=== PATIENT | female | born 1985 | race American Indian/Alaskan Native ===

== ENCOUNTER → 2018-02-01 | Emergency (ER) | payer OTHER ==
--- NOTE | 2018-02-02 11:05 | OBHP ---
Datetime: 02/01/2018 07:20 IP Adm Impression: Term, intrauterine IP Admit Plan: Observation/Evaluation Admit Comment, IP Provider: 32 y/o , 39.2 wks based on LMP of 05/02/18 and ADWOA of 02/06/18 pre sents to [facility] with contractions and vaginal bleeding. Contractions started 4 am this morning Q2-3 min s, regular with lower abdominal pressure. Vaginal bleeding is scent bright red which started this mor kavya which she noticed while wiping. Endorses good movements. Amy LOF. PNC: Dr. 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 PSHx: Denies Allergies: Peanut F/H: DM father and GM S/S: Denies alcohol/drugs/tobacco since Meds: PNVs, avyclovir/valacyclovir PE General: NAD Chest: RRR, S1S2 present Lungs: CTA B/L Abdomen: Gravid, NT SVE: Ext : No pedal edema or calf tenderness A/P: 32 y/o , 39.2 wks based on LMP of 05/02/18 and ADWOA of 02/06/18 presents to [facility] with co ntractions and vaginal bleeding. - EFM and toco - NST reactive - - Monitor for cervical change Case discussed with attending Mika Argueta, PGY1 OB Hospitalist Addendum: Pt seen and examined by me. Agree w/ above. 32 yo at 39+2 wks w / contractions, vag spotting. VE at 0720. Discussed w/ Dr. Ward who will come by and see the pt. (ES) Pelvic Type - PN: Not Done Extremities - PN: Normal Abdomen - PN: Normal Back - PN: Normal Breast - PN: Normal Lungs - PN: Normal Heart - PN: Normal Thyroid - PN: Not Done Neurologic - PN: Normal HEENT - PN: Normal General - PN: Normal FHR - Baseline A Provider: 140 Contraction Comments Provider: regular Comments, ACOG Physical Exam: General: NAD Chest: RRR, S1S2 present Lungs: CTA B/L Abdomen: Gravid, NT SVE: 06/08/-3 Ext : No pedal edema or calf tenderness (Annotations: Data stored by CPN on behalf of user) IP Hx Assessment: The History has been Reviewed and is Current EGA AdmitDate IP: 39.2 Vital Signs Provider: Reviewed; Within Normal Limits IP Chief Complaint: Uterine contractions; Vaginal bleeding NICHD Variability Prov Fetus A: Moderate 6-25bpm NICHD Accel Fetus A IP Provider: 15X15 FHR Category Provider Fetus A: Category I NICHD Decel Fetus A IP Provider: None Dilatation, Provider: 1 Effacement, Provider: 30 Station, Provider: -3 Genitourinary Exam: Normal DTRs - PN: Not Done
== END | disposition home or self-care (01) ==
LOC: H.EROB2 05:00
DX: O26.93 Pregnancy related conditions, unspecified, third trimester (principal); R10.2 Pelvic and perineal pain; O26.853 Spotting complicating pregnancy, third trimester; Z3A.39 39 weeks gestation of pregnancy

== ENCOUNTER 2018-02-02 06:23 | Inpatient (IN) | payer OTHER ==
[2018-02-02 08:31] VITALS: BMI 28.1
[2018-02-02] MEDS ORDERED: Lactated Ringer's 1,000 ML IV ONE (08:31)
[2018-02-02] MEDS: Lactated Ringer's 1,000 ML IV SCH ×2 (09:00→14:08)
[2018-02-02] MEDS ORDERED: Oxytocin 30 UNIT 30 UNITS/500 ML BAG IV ONE ×2 (09:08→17:20)
[2018-02-02] MEDS ORDERED: OXYTOCIN/0.9 % NS 20 UNIT/1,000 ML BAG IV SCH (09:15)
[2018-02-02] MEDS ORDERED: Fentanyl/Bupivacaine HCl 250 ML EPI ONE (09:20)
[2018-02-02 09:33] LABS: BASO % 0.2 % (0.0-2.0); EOS # 0.1 K/uL (0.0-0.7); EOS % 0.6 % (0.0-4.0); HEMOGLOBIN 13.2 g/dL (12.0-16.0); LYMPH # 0.9 K/uL (1.0-4.3); LYMPH % 8.2 % (20.0-40.0); MEAN CORPUSCULAR HEMOGLOBIN 35.4 pg (27.0-31.0); MEAN PLATELET VOLUME 8.9 fl (7.2-11.7); MONO # 0.4 K/uL (0.0-0.8); MONO % 3.8 % (0.0-10.0); NEUT # 9.4 K/uL (1.8-7.0); NEUT % 87.2 % (50.0-75.0); NRBC % 0.1 % (0.0-0.0); PLATELET COUNT 190 K/uL (130-400); RBC 3.74 Mil/uL (3.80-5.20); WHITE BLOOD COUNT 10.8 K/uL (4.8-10.8)
[2018-02-02 10:33] LABS: BANDS 2 % (0-2); LYMPHOCYTE 7 % (20-50); MONOCYTE 3 % (0-10); NEUTROPHIL 88 % (42-75); TOTAL CELLS COUNTED 100
[2018-02-02 10:34] LABS: PLATELET ESTIMATE NORMAL (NORMAL)
[2018-02-02] MEDS ORDERED: Penicillin G Potassium 2 MU in Sodium Chloride 0.9% 50 ML IVPB SCH (13:00)
[2018-02-02] MEDS ORDERED: Penicillin G 5 Million Unit Vial IVPB ONE (14:37)
--- NOTE | 2018-02-02 22:41 | OBADHP ---
Datetime: 02/02/2018 22:35 Admit Comment, IP Provider: iup at term uneventful course admitted in labor for delivery Pelvic Type - PN: Adequate Extremities - PN: Normal Abdomen - PN: Normal Back - PN: Normal Breast - PN: Normal Lungs - PN: Normal Heart - PN: Normal Thyroid - PN: Normal Neurologic - PN: Normal HEENT - PN: Normal General - PN: Normal Presentation-Admit: Vertex FHR - Baseline A Provider: 130 Membranes, Provider: Bulging Contraction Comments Provider: irregular Gestation - Est Wks by US: 39+ IP Chief Complaint: Uterine contractions NICHD Variability Prov Fetus A: Moderate 6-25bpm NICHD Accel Fetus A IP Provider: 10X10 FHR Category Provider Fetus A: Category I NICHD Decel Fetus A IP Provider: None Dilatation, Provider: 7 Effacement, Provider: 75% Station, Provider: -3 Genitourinary Exam: Normal DTRs - PN: Normal EGA AdmitDate IP: 39.3 IP Adm Impression: Term, intrauterine IP Admit Plan: Admit to unit; Initiate labor protocol
--- NOTE | 2018-02-02 22:44 | OBDS ---
DELIVERY PERSONNEL Delivery Doctor: Angelika Mcdonough MD Anesthesiologist: Eugenia Person MD MATERNAL INFORMATION Delivery Anesthesia: Epidural Medications in Delivery: pitocin Estimated Blood Loss (ml): 250 Maternal Complications: None Provider Comments: delivery of live baby boy 7/9 meconiunnm fluid cord with 3vessels placenta intact perineum with small scratch LABOR SUMMARY EDC: 02/06/2018 00:00 No. Babies in Womb: 1 Attempted: No Labor Anesthesia: Intrathecal LABOR INFORMATION Reason for Induction: Not Applicable Onset of Labor: 02/01/2018 08:25 Oxytocin: N/A Group B Beta Strep: Positive Antibiotics # of Doses: PEN G x1 Antibiotics Time of Last Dose: 1100 02/02 Steroids Given: None Reason Steroids Not Administered: Not Applicable MEMBRANES Membranes Rupture Method: Artificial Rupture of Membranes: 02/02/2018 11:20 Amniotic Fluid Color: Light Meconium Amniotic Fluid Amount: Moderate Amniotic Fluid Odor: None VAGINAL DELIVERY Episiotomy: None Laceration Extension: N/A Laceration Type: None BABY A INFORMATION Method of Delivery: Vaginal Born in Route : No : N/A PRESENTATION/POSITION BABY A Cephalic Presentation: Vertex INFANT INFORMATION BABY A Gestational Age at Delivery: 39.3 (Annotations: Data stored by [facility] on behalf of user) Gestational Status: Term IDENTIFICATION/MEDS BABY A ID Band Number: [id number] ID Band Location: Left Leg; Left Arm
[2018-02-02] MEDS ORDERED: Benzocaine/Menthol SPRAY TOP PRN (22:56)
[2018-02-02] MEDS ORDERED: Oxycodone/Acetaminophen 5/325 mg Tab PO PRN ×2 (22:56)
[2018-02-02] MEDS ORDERED: OXYTOCIN/0.9 % NS 20 UNIT/1,000 ML BAG IV ONE (22:56)
[2018-02-02] MEDS ORDERED: Acetaminophen-Codeine 300/30 mg Tab PO PRN (22:56)
[2018-02-03] MEDS ORDERED: Acetaminophen-Codeine 300/30 mg Tab PO PRN (01:54)
[2018-02-03] MEDS ORDERED: Oxycodone/Acetaminophen 5/325 mg Tab PO PRN ×2 (01:54)
[2018-02-03] MEDS ORDERED: Benzocaine/Menthol SPRAY TOP PRN (01:54)
[2018-02-03] MEDS ORDERED: Multivitamin With Minerals Tab PO SCH ×2 (09:00)
--- NOTE | 2018-02-03 10:36 | OBHP ---
Datetime: 02/02/2018 22:35 IP Adm Impression: Term, intrauterine IP Admit Plan: Admit to unit; Initiate labor protocol Admit Comment, IP Provider: iup at term uneventful course admitted in labor for delivery Pelvic Type - PN: Adequate Extremities - PN: Normal Abdomen - PN: Normal Back - PN: Normal Breast - PN: Normal Lungs - PN: Normal Heart - PN: Normal Thyroid - PN: Normal Neurologic - PN: Normal HEENT - PN: Normal General - PN: Normal Presentation-Admit: Vertex FHR - Baseline A Provider: 130 Membranes, Provider: Bulging Contraction Comments Provider: irregular Gestation - Est Wks by US: 39+ IP Indication for Induction: Not Applicable IP Chief Complaint: Uterine contractions NICHD Variability Prov Fetus A: Moderate 6-25bpm NICHD Accel Fetus A IP Provider: 10X10 FHR Category Provider Fetus A: Category I NICHD Decel Fetus A IP Provider: None Dilatation, Provider: 7 Effacement, Provider: 75% Station, Provider: -3 Genitourinary Exam: Normal DTRs - PN: Normal Datetime: 02/01/2018 07:20 Comments, ACOG Physical Exam: General: NAD Chest: RRR, S1S2 present Lungs: CTA B/L Abdomen: Gravid, NT SVE: 3 Ext : No pedal edema or calf tenderness (Annotations: Data stored by CPN on behalf of user) IP Hx Assessment: The History has been Reviewed and is Current EGA AdmitDate IP: 39.2 Vital Signs Provider: Reviewed; Within Normal Limits
[2018-02-03 12:47] LABS: BASO % 0.3 % (0.0-2.0); EOS # 0.3 K/uL (0.0-0.7); EOS % 1.9 % (0.0-4.0); HEMOGLOBIN 11.4 g/dL (12.0-16.0); LYMPH # 1.7 K/uL (1.0-4.3); LYMPH % 11.2 % (20.0-40.0); MEAN CORPUSCULAR HGB CONC 33.9 g/dL (33.0-37.0); MEAN PLATELET VOLUME 8.6 fl (7.2-11.7); MONO # 1.2 K/uL (0.0-0.8); MONO % 7.8 % (0.0-10.0); NEUT # 11.8 K/uL (1.8-7.0); NEUT % 78.8 % (50.0-75.0); NRBC % 0.1 % (0.0-0.0); RBC 3.26 Mil/uL (3.80-5.20); WHITE BLOOD COUNT 14.9 K/uL (4.8-10.8)
[2018-02-04] MEDS ORDERED: Influenza Vaccine (5 YR UP)/PF 60 MCG/0.5 ML SYR IM ONE (14:00)
--- NOTE | 2018-02-04 15:16 | OBPPN ---
Datetime: 02/04/2018 15:12 PP Pain Prov: Within normal limits PP Nausea Prov: Denies PP Flatus Prov: Yes PP Breasts Prov: Normal PP Heart Prov: Normal PP Lungs Prov: Normal PP Abdomen/Uterus Prov: Normal PP Lochia Prov: Normal PP Vulva/Perineum Prov: Normal PP CVA Tenderness Prov: Normal PP Extremities Prov: Normal PP Progress Prov: Normal PP Impression Prov: Normal progression PP Plan Prov: Continue present management PP Progress Note Prov: stable ppd2 dc home today IP PP Procedures: None Vital Signs Provider PP: Reviewed; Within Normal Limits
--- NOTE | 2018-02-04 15:19 | OBDCSUM ---
Datetime: 02/04/2018 15:15 Discharged to, Provider: Home Follow up at, Provider: Disch Instr Activity: Normal activity; Bedrest; May be up to bathroom; May be up for meals; May Show er Disch Instr Diet: Regular Discharge Instructions, Provider: Routine instructions given Discharge Diagnosis, Provider: Term Delivered Discharge Time: 02/04/2018 15:15 Follow up in weeks, Provider: in office Disch Referrals: None Disch Activity Restrictions: No exercising; No lifting; No driving; Minimize walking; Minimize stair -climbing; No sexual activity; Nothing in vagina - [place], tampons, douche Discharge Comment, Provider: jennifer home today rto 5-6weeks call office if any problem Contraception after Delivery: Undecided
[2018-02-04 23:44] VITALS: BP 113/78; PULSE 86; RESP 16; TEMP 98; O2SAT 98
== END 2018-02-04 18:25 | disposition home or self-care (01) | DRG 775 ==
LOC: H.EROB2 06:23 → H.L&D 08:28 → H.OB/GYN 02-03 00:53
PROVIDERS: ADMIT Obstetrics & Gynecology Gynecology; ATTEND Obstetrics & Gynecology Gynecology
PROC: 10E0XZZ Delivery of Products of Conception, External Approach (ICD-10-PCS; principal; 2018-02-02)
PROC: 4A1HXCZ Monitoring of Products of Conception, Cardiac Rate, External Approach (ICD-10-PCS; 2018-02-02)
DX: O99.824 Streptococcus B carrier state complicating childbirth (principal); Z37.0 Single live birth; Z3A.39 39 weeks gestation of pregnancy; O69.1XX0 Labor and delivery complicated by cord around neck, with compression, not applicable or unspecified; O77.0 Labor and delivery complicated by meconium in amniotic fluid